=== PATIENT | male | born 1930 | race Caucasian/White ===

== ENCOUNTER 2018-01-08 09:24 | Emergency (ER) | payer MEDICARE ==
[~2018-01-08] VITALS: Ht 180.3 cm; Wt 95.7 kg
[~2018-01-08 09:24] MED LIST: AMLO5; ASPI325EC PO; ATOR10; ATOR20 PO; Aspirin EC81 MG; BENAML10/2 PO; BLOOD PRESSURE; CHOLESTEROL MED; CLOP75 PO; CYAN100; DOCU100 PO; FAMO20; GLUCHON; ISOMON30 PO; Isosorbide Mono30 MG PO; JOINT SUPPORT1 EACH; LISINOPRIL; MELO7.5 PO; METF500 PO; METO25ER PO; MULVITMINE; Multiple Vitam1 EAC1 PO; NAPR220; OMEGA-3 KRILL1 EAC4 PO; OMEP10ER; OMEP10ER PO; OMEP20ER PO; ROSU10TA; ROSU10TA PO; SIMV10; STOOL SOFTENER
[2018-01-08 10:21] LABS: BASOPHILS ABSOLUTE AUTO 0.05 K/mm3 (0.00-0.23); BASOPHILS PERCENT AUTO 0 % (0-2); EOSINOPHILS PERCENT AUTO 0 % (0-6); Hematocrit 38.7 % (37.0-53.0); Hemoglobin 12.5 g/dL (13.5-17.5); IMMATURE GRAN ABSOLUTE AUTO 0.09 K/mm3 (0.00-0.10); IMMATURE GRAN PERCENT AUTO 1 % (0-1); LYMPHOCYTES ABSOLUTE AUTO 0.49 K/mm3 (0.84-5.20); LYMPHOCYTES PERCENT AUTO 3 % (21-46); MONOCYTES ABSOLUTE AUTO 0.77 K/mm3 (0.16-1.47); MONOCYTES PERCENT AUTO 5 % (4-13); Mean Corpuscular HGB 30.1 pg (26.0-34.0); Mean Corpuscular HGB Conc 32.3 g/dL (31.5-36.5); Mean Corpuscular Volume 93 fL (80-100); NEUTROPHILS ABSOLUTE AUTO 15.55 K/mm3 (1.96-9.15); NEUTROPHILS PERCENT AUTO 92 % (41-73); Platelet Count 134 K/mm3 (150-400); RDW Coefficient Variation 13.6 % (11.7-14.2); RDW Standard Deviation 46.6 fL (35.1-46.3); Red Blood Cell Count 4.15 M/mm3 (4.30-5.90); White Blood Cell Count 16.95 K/mm3 (4.00-11.30)
[2018-01-08 10:34] LABS: Creatinine, Blood 1.71 mg/dL (0.60-1.20); Potassium, Blood 4.7 mmol/L (3.5-5.5)
[2018-01-08] MEDS ORDERED: AMLO10 PO (12:16)
[2018-01-08] MEDS ORDERED: ATOR20 PO (12:16)
[2018-01-08] MEDS ORDERED: ISOMON20 PO (12:16)
[2018-01-08] MEDS ORDERED: CLOP75 (12:17)
[2018-01-08] MEDS ORDERED: Metformin HCl500 MG (12:17)
[2018-01-08] MEDS ORDERED: Aspir 8181 MG (12:17)
[2018-01-08] MEDS ORDERED: METO25ER PO (12:17)
== END 2018-01-08 13:00 | disposition short-term general hospital (02) ==
LOC: ER 09:24
PROVIDERS: Emergency Medicine
DX: N32.89 Other specified disorders of bladder (principal); Z87.891 Personal history of nicotine dependence
CPT/HCPCS: 36415; 51702; 51798; 80048; 85025; 96374; 96375; 99285; J1170; J2405

== ENCOUNTER 2018-01-12 16:45 | Emergency (ER) | payer MEDICARE ==
[~2018-01-12] VITALS: Ht 180.3 cm; Wt 101.6 kg
[~2018-01-12 16:45] MED LIST changes: +AMLO10 PO; +Aspir 8181 MG; +CLOP75; +ISOMON20 PO; +Metformin HCl500 MG
[2018-01-12 22:02] LABS: Source, Urine Catheter
[2018-01-12 22:04] LABS: Bilirubin, Urine Neg (Neg); Blood, Urine 5+ (Neg); Glucose Qualitative, Urine Neg (Neg); Ketones, Urine Neg (Neg); Leukocyte Esterase, Urine 2+ (Neg); Nitrite, Urine Neg (Neg); Protein, Urine 3+ (Neg); Specific Gravity, Urine 1.015 (1.003-1.022); Urobilinogen, Urine NORM (Normal)
[2018-01-12 22:10] LABS: Appearance, Urine Hazy (Clear); Color, Urine Yellow (P-Yellow)
[2018-01-12 22:11] LABS: Bacteria Few /hpf; Squamous Epithelial Cells Not Seen /hpf (Few)
== END 2018-01-12 22:37 | disposition home or self-care (01) ==
LOC: ER 16:45
PROVIDERS: Physician Assistant
DX: T83.098A Other mechanical complication of other urinary catheter, initial encounter (principal); R33.9 Retention of urine, unspecified; E11.9 Type 2 diabetes mellitus without complications; Z95.0 Presence of cardiac pacemaker; Z98.890 Other specified postprocedural states; Z88.8 Allergy status to other drugs, medicaments and biological substances; Z90.49 Acquired absence of other specified parts of digestive tract; Z95.5 Presence of coronary angioplasty implant and graft; Z79.899 Other long term (current) drug therapy
CPT/HCPCS: 51700; 51798; 81001; 87077; 87086; 87186; 99283

== ENCOUNTER 2018-11-23 20:52 | Emergency (ER) | payer MEDICARE, OTHER ==
[~2018-11-23] VITALS: Ht 180.3 cm; Wt 86.2 kg
[2018-11-23] MEDS ORDERED: MELO7.5 PO (21:38)
[2018-11-23 23:15] LABS: Source, Urine Catheter
[2018-11-23 23:18] LABS: Blood, Urine 5+ (Neg); Glucose Qualitative, Urine Neg (Neg); Ketones, Urine 1+ (Neg); Leukocyte Esterase, Urine 1+ (Neg); Nitrite, Urine Pos (Neg); Protein, Urine 4+ (Neg); Specific Gravity, Urine 1.015 (1.003-1.022); Urobilinogen, Urine 1+ (Normal)
[2018-11-23 23:19] LABS: Appearance, Urine Turbid (Clear); Bilirubin, Urine 2+ (Neg); Color, Urine Brown (P-Yellow)
[2018-11-23 23:24] LABS: Bacteria Mod /hpf; Red Blood Cells, Urine TNTC /hpf (0-2); Squamous Epithelial Cells Not Seen /hpf (Few)
[2018-11-23] MEDS ORDERED: LEVO750 PO (23:30)
== END 2018-11-23 23:43 | disposition home or self-care (01) ==
LOC: ER 20:52
PROVIDERS: Emergency Medicine
DX: N39.0 Urinary tract infection, site not specified (principal); R33.9 Retention of urine, unspecified; Z88.8 Allergy status to other drugs, medicaments and biological substances; Z87.891 Personal history of nicotine dependence
CPT/HCPCS: 51702; 51798; 81001; 87086; 99283

== ENCOUNTER 2019-07-02 13:59 | Day surgery (SDC) | payer MEDICARE ==
[~2019-07-02] VITALS: Ht 180.3 cm; Wt 94.9 kg
[~2019-07-02 13:59] MED LIST changes: +CRANBERRY CONC1 EACH PO; +Ferrous Sulfat325 M2 PO; +Flomax0.4 MG PO; +LEVO750 PO; +Lipitor20 MG PO; +Lotrel 10-20 M1 EACH PO; +MULTI VITAMIN1 EACH PO; +Pepto-Bismol262 MG PO; +SITA100T2 PO; +Zantac150 MG PO
--- NOTE | 2019-07-02 15:25 | NUR ---
07/02/19 1525 Alia Worley UPON TURNING PT ONTO LEFT SIDE LIQUID BROWN STOOL CAME OUT ON THE PAD. CASE CANCELLED DUE TO INCOMPLETE PREP. NO MEDS WERE GIVEN. PT TO BE D/C TO HOME.
--- NOTE | 2019-07-02 16:47 | NUR ---
07/02/19 7707 Margot Plunkett PT WAS BROUGHT TO STEPDOWN INCONTINENT OF STOOL, I CLEANED PT UP AND ALMOST HAD HIS CLOTHES BACK ON WHEN HE WAS INCONTINENT OF A VERY LARGE AMOUNT OF BROWN LIQUID STOOL. I CLEANED PT ONCE AGAIN AND GOT HIS CLOTHES ON AND HE WAS GIVEN DC INSTUCTIONS FOR HOME, GIVEN RX THAT WAS FAXED TO [facility] I TOOK PT VIA WC AND GOT HIM TO XRAY DEPT. WHERE HIS SON ASSUMED CARE.
== END 2019-07-02 16:30 | disposition home or self-care (01) ==
LOC: ORSCSDS 13:59
DX: R19.7 Diarrhea, unspecified (principal); R10.84 Generalized abdominal pain; Z53.9 Procedure and treatment not carried out, unspecified reason
CPT/HCPCS: 71046; 82947; J2250; J2704; J7120

== ENCOUNTER 2019-07-03 13:55 | Inpatient (IN) | payer MEDICARE, OTHER ==
[~2019-07-03] VITALS: Ht 180.3 cm; Wt 78.4 kg
[2019-07-03 14:20] LABS: Calcium, Ionized (POC) 1.15 mmol/L (1.10-1.46); Chloride (POC) 100 mmol/L (98-108); Creatinine (POC) 2.9 mg/dL (0.8-1.3); Glucose (ISTAT POC) 127 mg/dL (70-99); Hemoglobin (POC) 10.2 g/dL (13.5-17.5); Potassium (POC) 3.4 mmol/L (3.5-5.5); Sodium (POC) 127 mmol/L (135-148); Total CO2 (POC) 16 mmol/L (21-32)
[2019-07-03 14:24] LABS: Hematocrit 29.7 % (37.0-53.0); Hemoglobin 9.3 g/dL (13.5-17.5); Mean Corpuscular HGB 28.4 pg (26.0-34.0); Mean Corpuscular HGB Conc 31.3 g/dL (31.5-36.5); Mean Corpuscular Volume 91 fL (80-100); Mean Platelet Volume 11.5 fL (9.1-12.4); NRBC ABSOLUTE 0.02 K/mm3 (0.00-0.02); NRBC Auto 0.1 /100 WBC (0.0-0.2); Platelet Count 216 K/mm3 (150-400); RDW Coefficient Variation 15.7 % (11.7-14.2); RDW Standard Deviation 51.2 fL (35.1-46.3); Red Blood Cell Count 3.28 M/mm3 (4.30-5.90)
[2019-07-03 14:45] LABS: BAND PERCENT MAN 4 % (0-8); BASOPHILS PERCENT MAN 0 % (0-2); EOSINOPHILS PERCENT MAN 0 % (0-6); LYMPHOCYTES ABSOLUTE MAN 0.46 K/mm3 (0.84-5.20); LYMPHOCYTES PERCENT MAN 2 % (21-46); METAMYELOCYTE ABSOLUTE MAN 0.23 K/mm3 (0.00-0.00); METAMYELOCYTE PERCENT MAN 1 % (0-0); MONOCYTES ABSOLUTE MAN 0.46 K/mm3 (0.16-1.47); MONOCYTES PERCENT MAN 2 % (4-13); NEUTROPHILS ABSOLUTE MAN 22.04 K/mm3 (1.96-9.15); SEG NEUTROPHILS PERCENT MAN 91 % (41-73); TOTAL CELLS COUNTED 100
[2019-07-03 14:46] LABS: Albumin, Blood 2.5 g/dL (3.4-5.0); Albumin/Globulin Ratio 0.6 (0.8-1.8); Bilirubin, Total 0.4 mg/dL (0.1-1.0); Bun/Creatinine Ratio 24.3 (12.0-20.0); Creatinine, Blood 2.43 mg/dL (0.60-1.20); Globulin, Blood 4.4 g/dL (2.2-4.0); Potassium, Blood 3.4 mmol/L (3.5-5.5); Total Protein, Blood 6.9 g/dL (6.4-8.2)
[2019-07-03 19:36] LABS: PCO2 Arterial 34.4 mmHg (35-45); PO2 Arterial 63.4 mmHg (80-100)
[2019-07-03 23:05] LABS: CPK Creatine Kinase 139 U/L (39-308); Phosphorus, Blood 5.2 mg/dL (2.5-4.9); Prostate Specific Antigen 0.014 ng/mL (0.000-4.000); Uric Acid, Blood 9.5 mg/dL (3.5-7.2)
[2019-07-04 04:37] LABS: BASOPHILS ABSOLUTE AUTO 0.05 K/mm3 (0.00-0.23); BASOPHILS PERCENT AUTO 0 % (0-2); EOSINOPHILS ABSOLUTE AUTO 0.01 K/mm3 (0.00-0.68); EOSINOPHILS PERCENT AUTO 0 % (0-6); Hematocrit 29.3 % (37.0-53.0); IMMATURE GRAN ABSOLUTE AUTO 1.91 K/mm3 (0.00-0.10); IMMATURE GRAN PERCENT AUTO 9 % (0-1); LYMPHOCYTES ABSOLUTE AUTO 0.14 K/mm3 (0.84-5.20); LYMPHOCYTES PERCENT AUTO 1 % (21-46); MONOCYTES ABSOLUTE AUTO 0.91 K/mm3 (0.16-1.47); MONOCYTES PERCENT AUTO 4 % (4-13); Mean Corpuscular HGB 28.5 pg (26.0-34.0); Mean Corpuscular HGB Conc 30.7 g/dL (31.5-36.5); Mean Corpuscular Volume 93 fL (80-100); Mean Platelet Volume 11.3 fL (9.1-12.4); NEUTROPHILS ABSOLUTE AUTO 18.94 K/mm3 (1.96-9.15); NEUTROPHILS PERCENT AUTO 86 % (41-73); NRBC ABSOLUTE 0.03 K/mm3 (0.00-0.02); NRBC Auto 0.1 /100 WBC (0.0-0.2); Platelet Count 191 K/mm3 (150-400); RDW Coefficient Variation 15.7 % (11.7-14.2); RDW Standard Deviation 53.3 fL (35.1-46.3); Red Blood Cell Count 3.16 M/mm3 (4.30-5.90); White Blood Cell Count 21.96 K/mm3 (4.00-11.30)
[2019-07-04 04:50] LABS: International Normalized Ratio 1.13; Prothrombin Time Results 11.8 Sec (9.7-11.5)
[2019-07-04 04:52] LABS: Bun/Creatinine Ratio 24.5 (12.0-20.0); Calcium, Blood 7.6 mg/dL (8.5-10.1); Creatinine, Blood 2.61 mg/dL (0.60-1.20); Potassium, Blood 3.4 mmol/L (3.5-5.5)
[2019-07-04 04:56] LABS: PCO2 Arterial 36.1 mmHg (35-45); PO2 Arterial 94.9 mmHg (80-100); pH Blood Arterial 7.16 (7.35-7.45)
[2019-07-04 04:58] LABS: BAND PERCENT MAN 3 % (0-8); BASOPHILS PERCENT MAN 0 % (0-2); EOSINOPHILS PERCENT MAN 0 % (0-6); METAMYELOCYTE ABSOLUTE MAN 0.21 K/mm3 (0.00-0.00); METAMYELOCYTE PERCENT MAN 1 % (0-0); MONOCYTES ABSOLUTE MAN 0.21 K/mm3 (0.16-1.47); MONOCYTES PERCENT MAN 1 % (4-13); NEUTROPHILS ABSOLUTE MAN 21.52 K/mm3 (1.96-9.15); SEG NEUTROPHILS PERCENT MAN 95 % (41-73); TOTAL CELLS COUNTED 100
--- NOTE | 2019-07-04 05:23 | NUR ---
CALLED [facility]ICAL [facility] TO HOSPITALIST. PH [phone] DOWN FROM 7.2 IN ED. HE WILL ADD ORDER FOR SODIUM BICARB PO.
[2019-07-04 06:13] LABS: Source, Urine Catheter
[2019-07-04 06:18] LABS: Bilirubin, Urine Neg (Neg); Blood, Urine 2+ (Neg); Glucose Qualitative, Urine Neg (Neg); Ketones, Urine Neg (Neg); Leukocyte Esterase, Urine Neg (Neg); Nitrite, Urine Neg (Neg); Protein, Urine 2+ (Neg); Specific Gravity, Urine 1.015 (1.003-1.022); Urobilinogen, Urine NORM (Normal)
[2019-07-04 06:24] LABS: Appearance, Urine Clear (Clear); Color, Urine Pale Yellow (P-Yellow)
[2019-07-04 06:27] LABS: Red Blood Cells, Urine 0-2 /hpf (0-2); White Blood Cells, Urine Not Seen /hpf (0-5)
[2019-07-04 06:32] LABS: Bacteria Not Seen /hpf; Granular Casts 0-2 /lpf (0); Squamous Epithelial Cells Rare /hpf (Few)
--- NOTE | 2019-07-04 07:33 | NUR ---
NOC SHIFT SUMMARY PT ADMITTED THIS NIGHT FOR SIRS AND SOB. HE IS AAOX4, ON 3LNC RESP ARE EVEN AND UNLABORED. LUNG SOUNDS WHEEZY THROUGHOUT. VSS. NO ACUTE CHANGES NOTED THIS NIGHT AND PT DOES NOT APPEAR TO BE IN ANY ACUTE DISTRESS. ONCOLOGIST IN TO SEE HIM THIS A.M. REPORT TO ONCOMING RN.
[2019-07-04 10:27] LABS: Stool Occult Blood Guaiac 1 Pos (Neg)
--- NOTE | 2019-07-04 17:45 | NUR ---
SHIFT SUMMARY DR. 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 PT CHOSE NOT TO PERSUE FURTHER TREATMENT AT THIS TIME AND TO CHANGE TO DNR STATUS. HAS HAD DIARRHEA THROUGH DAY. DID GET UP TO COMMODE WITH 2 PERSON ASSIST AND VOIDED ONCE. WEAK AND REPORTS A "BAD" KNEE. FWW USED FOR SAFETY. HAS BEEN SLEEPING MOST OF DAY. STATES HE WOULD RATHER SLEEP THAN ANYTHING ELSE AT THIS TIME. HE HAS BEEN INCONTINENT OF STOOL THROUGH DAY AND REPORTS HE DOESN'T REALLY NOTICE HE IS LEAKING STOOL. DENIES RESP DISTRESS. PT HAS SPOKEN WITH FAMILY ON PHONE AND DR. CARR TOOK DAUGHTERS NUMBER AND RECEIVED PERMISSION TO SPEAK WITH HER ON PHONE ABOUT DX AND PROGNOSIS.
--- NOTE | 2019-07-05 04:57 | NUR ---
shift summary: Pt slept well last pm for the most part. Dilaudid was given x 1 with adequate relief. Abdomen very distended and firm. O2 on at 4 liters to keep sats above 90%.
--- NOTE | 2019-07-05 07:22 | NUR ---
STATUS CHANGE: LEYDA CABAN, WHO WAS WITH THE PATIENT YESTERDAY, REPORTED TO THE RN THAT THE PATIENT'S ORIENTATION AND ALERTNESS WAS SIGNIFICANTLY CHANGED FROM YESTERDAY. PATIENT IS RESTING IN BED WITH A BLANK STARE. HE WILL LOOK AT YOU WHEN SPEAKING LOUDLY AND ANSWER WITH 1-2 WORDS. SOMETIMES, HE SIMPLY SAYS "YUP" WHETHER THIS IS AN APPROPRIATE RESPONSE OR NOT. VITAL SIGNS ARE COMPARABLE TO THE LAST [address] SHANEL SHEPHERD. NO NEW ORDERS AT THIS TIME.
--- NOTE | 2019-07-05 09:28 | NUR ---
PATIENT DID NOT EAT BREAKFAST THIS SHIFT. PATIENT WAS NOT AWAKE ENOUGH TO EAT THIS SHIFT. RN NOTIFIED.
--- NOTE | 2019-07-05 14:18 | NUR ---
PATIENT DID NOT EAT LUNCH THIS SHIFT DUE TO BEING NOT AWAKE ENOUGH TO EAT. RN NOTIFIED.
--- NOTE | 2019-07-05 14:19 | NUR ---
[facility] inital visit: Mr. Sunshine appears frail and weak. He is [place] and he is hard to understand at times. He tells me he feels "ready" and asked me how long he has. He would like to go home to . He is active in his Islam dyan, and I have asked Father Julio César to perform Sacrament of the Sick later today. Mr. Sunshine states that the only unfinished business he'd feels he must complete is making his dtr, Cele, his [id number]. T/C to Cele. She was tearful and overwhelmed. I explained to Cele her father's wishes. Cele tells me she has her own health problems and cannot care for her father in his home of hers. I told her about his wishes regarding [id number]. She arrived a few hours later with a durable power-of -family law attorney document. Our notary, Gloria Bates will meet with pt and family this afternoon. No ther needs presented. I will remain available.
--- NOTE | 2019-07-05 14:41 | NUR ---
PATIENT STATUS: PATIENT RESTING IN BED. FAMILY HAS LEFT THE BEDSIDE. PATIENT REPORTS PAIN AT A "5". PATIENT WAS EXPERIENCING SECRETIONS EARLIER. UTILIZED MINIMAL SUCTION AND REPOSITIONED PATIENT. PLACED SCOP PATCH. SECRETIONS ARE IMPROVED. PATIENT REQUESTS BEING ABLE TO REST. MEDICATED FOR PAIN. TURNED OFF LIGHTS AND COMMUNICATED WITH DOOR MANAGER TO ALLOW PATIENT TO REST.
--- NOTE | 2019-07-05 17:35 | NUR ---
Pt visit this afternoon. Pt is resting in bed and appears mildly dyspneic as evidenced by work of breathing. No family present at this time. Pt briefly responds verbally with a hello then no longer responds. Reviewed chart notes and medications. Will disucss case with bedside nurse when she is available. Palliative Care will remain available for symptom management.
--- NOTE | 2019-07-05 17:44 | NUR ---
Late Entry from prvious visit. Spoke with bedside nurse Marcia and discussed case. Marcia reports Pt has shown significant decline. Discussed work of breathing and reviewed medications. Palliative Care will remain available.
--- NOTE | 2019-07-05 17:47 | NUR ---
AIR HUNGER: PATIENT RESTING IN BED. SHOWING SIGNS OF AIR HUNGER. MEDICATED PER EMAR.
--- NOTE | 2019-07-05 17:53 | NUR ---
PATIENTS ATTENDS WERE CHECKED AND THEY WERE CLEAN AND DRY. PATIENT WAS ALSO REPOSITIONED. RN WAS PRESENT.
--- NOTE | 2019-07-05 17:55 | NUR ---
PATIENT DID NOT EAT DINNER THIS SHIFT DUE TO NOT BEING AWAKE ENOUGH AT THIS TIME. RN NOTIDIED.
--- NOTE | 2019-07-05 18:14 | NUR ---
AIR HUNGER: AIR HUNGER MUCH IMPROVED. BREATHING AND RESTING COMFORTABLY. WHEN ASKED, PATIENT RESPONDED HE IS DOING "PRETTY GOOD". DENIES NEEDS AT THIS TIME.
--- NOTE | 2019-07-05 19:15 | NUR ---
END OF SHIFT SUMMARY: PATIENT TRANSITIONED TO COMFORT CARE TODAY. HIS DAUGHTER IS AWARE AND CAME TO VISIT THE PATIENT TODAY. ATTEMPTED TO TRANSFER FINANCIAL POA TO THE DAUGHTER. UNSURE OF FINAL RESULT. PATIENT REPORTED PAIN MID-DAY. MEDICATED PER PRNS (SEE EMAR). MEDICATED ONCE FOR AIR HUNGER. PATIENT WOULD LIKE TO BE ALLOWED TO REST. PATIENT'S EYES REMAIN OPEN EVEN WHEN HE APPEARS TO BE SLEEPING. RESPONDS TO SIMPLE QUESTIONS. SOMETIMES, PATIENT RESPONDS WITH "RIGHT" WHETHER THAT WAS AN APPROPRIATE RESPONSE OR NOT. PATIENT APPEARS COMFORTABLE. RASH IN THE GROIN APPEARS TO BE IMPROVED AFTER APPLICATION OF DESITIN.
--- NOTE | 2019-07-06 04:03 | NUR ---
Shift summary: Pt condition has deterioated last pm. Pt on comfort care. Pt pretty much unresponsive with very shallow breathing. No s/s pain noted or need for roxinol. Pt incontinent of bowel x 1 during night.
--- NOTE | 2019-07-06 07:42 | NUR ---
MORNING ASSESSMENT: PATIENT RESTING IN BED. DOES NOT RESPOND TO VERBAL STIMULI. NO SIGNS OR SYMPTOMS OF PAIN AT THIS TIME. BRIEF IS DRY. NO FAMILY PRESENT AT THIS TIME.
--- NOTE | 2019-07-06 08:06 | NUR ---
Palliative Care (Spiritual): Pt was alone, non-responsive. He looked peaceful and comfortable. Family was not present at time of visit. I introduced my person and offered ministry of presence. Verbal prayer was provided on pt's behalf for comfort and peace. I will remain available.
--- NOTE | 2019-07-06 11:44 | NUR ---
NAUSEA AND EMESIS: LATE ENTRY PATIENT RESTING COMFORTABLY IN BED. WITH CLAIMS SERVICE REPRESENTATIVE, STARTED A BRIEF CHANGE FOR A SOILED BRIEF. PATIENT ON SIDE WHEN DARK GREEN BILE STARTED COMING OUT OF HIS NOSE. PATIENT MAKING WRETCHING MOTIONS, BUT NO EMESIS CAME OUT OF HIS MOUTH DUE TO HIS TIGHTLY CLENCHED TEETH. SAT PATIENT UP. UTLIZED SUCTION AND WARM WASH CLOTHS TO CLEAN UP PATIENT. MEDICATED FOR PAIN. PATIENT HAD ANOTHER EPISODE OF EMESIS. DISCUSSED WITH PALLIATIVE CARE RNSANJAY. MEDICATED PATIENT FOR PAIN AND ANXIETY. SEE EMAR. WILL ALLOW PATIENT TO REST WITH MEDICATIONS BEFORE ATTEMPTING TO CLEAN UP BED AND FINISH BRIEF CHANGE. DETAIL MAKER AND FITTER AWARE THAT ADDITIONAL HELP WILL BE NEEDED.
--- NOTE | 2019-07-06 13:15 | NUR ---
Pt visit this afternoon. Pt is resting in bed with his eyes closed and is non responsive. Mild dyspnea noted as evidenced by work of breathing. Mottling noted on lower extremitites. Pt appears to be in the actively dying staged. Spoke with bedside nurse Marcia and discussed case. Family plans to visit aroung 1430 today and is requesting a visit from palliative care. Palliative Care will remain available.
--- NOTE | 2019-07-06 14:39 | NUR ---
LET NURSING LUBE MAN AND CHARGE NURSE KNOW OF PATIENTS PASSING. 2 NURSE VERIFICATION WAS DONE. PLACED A CALL TO DR. AGUERO PATIENT IS [place], WAS UNABLE TO REACH HER. LEFT A GENERIC VOICEMAIL FOR HER TO CALL THE MEDICAL FLOOR TO LET THE DOCTOR KNOW.
--- NOTE | 2019-07-06 16:23 | NUR ---
I WAS WITH THE PATIENT WHEN HE PASSED. WE WERE MOVING HIM TO GET THE BILE OFF HIS SHEETS. PATIENT'S BREATHING WAS EVEN AND UNLABORED AT THAT POINT BUT WAS SLOWING DOWN. WHEN WE ROLLED THE PATIENT BILE BEGAN TO OOZE FROM HIS MOUTH AND HIS NOSE. AT THAT POINT EVEN WITH SUCTIONING I HAD NOT SEEN A BREATH IN ALMOST A MINUTE. I STOPPED AND TRIED TO FEEL A PULSE, LISTENED FOR A HEARTBEAT AND LISTENED FOR BREATH. AFTER TWO MINUTES I CALLED LÓPEZ Frausto RN, FOR VERIFICATION OF PATIENT'S PASSING. CALLED THE DOCTOR AT THAT TIME AND LET THE FAMILY KNOW OF THE PATIENTS PASSING, WELL NOTIFYING THE CHARGE AND THE NURSING TURPENTINER. ALL BELONGINGS WERE SENT HOME WITH THE PATIENT'S FAMILY MEMBERS, AND THE PATIENT WAS CLEANED UP. FAMILY DECLINED TO SEE HIM POST HIS PASSING, THEY WERE CONSOLED BY PALLIATIVE CARE.
--- NOTE | 2019-07-06 16:58 | NUR ---
DISCHARGE:PATIENT LEFT THE FACILITY WITH THE HOME BAILIFF. CELL LINER, BONNIE GONZALEZ AWARE. FACE SHEET PROVIDED. BAILIFF STATED THAT HE WOULD NOTIFY THE FAMILY.
== END 2019-07-06 14:25 | DRG 871 ==
LOC: ER 13:55 → MEDS 19:05
PROVIDERS: Emergency Medicine; Nurse Practitioner Acute Care; ADMIT Hospitalist
DX: A41.9 Sepsis, unspecified organism (principal); J96.01 Acute respiratory failure with hypoxia; C20 Malignant neoplasm of rectum; C78.7 Secondary malignant neoplasm of liver and intrahepatic bile duct; C77.2 Secondary and unspecified malignant neoplasm of intra-abdominal lymph nodes; C78.6 Secondary malignant neoplasm of retroperitoneum and peritoneum; N17.9 Acute kidney failure, unspecified; R18.0 Malignant ascites; E87.2 Acidosis; Z51.5 Encounter for palliative care; C61 Malignant neoplasm of prostate; C67.6 Malignant neoplasm of ureteric orifice; C67.9 Malignant neoplasm of bladder, unspecified; I12.9 Hypertensive chronic kidney disease with stage 1 through stage 4 chronic kidney disease, or unspecified chronic kidney disease; E11.22 Type 2 diabetes mellitus with diabetic chronic kidney disease; N18.3 Chronic kidney disease, stage 3 (moderate); G47.33 Obstructive sleep apnea (adult) (pediatric); Z86.73 Personal history of transient ischemic attack (TIA), and cerebral infarction without residual deficits; I71.4 Abdominal aortic aneurysm, without rupture; Z85.038 Personal history of other malignant neoplasm of large intestine; I25.10 Atherosclerotic heart disease of native coronary artery without angina pectoris; Z95.5 Presence of coronary angioplasty implant and graft; Z95.0 Presence of cardiac pacemaker; Z87.891 Personal history of nicotine dependence; Z66 Do not resuscitate; R19.7 Diarrhea, unspecified; D64.9 Anemia, unspecified
CPT/HCPCS: 36415; 36600; 71046; 74176; 80047; 80048; 80053; 81001; 82272; 82550; 82803; 82947; 83605; 83735; 83880; 84100; 84145; 84550; 85014; 85025; 85610; 87040; 93005; 93010; 94640; 94762; 99285-25; C9113; G0103; J1170; J1940; J2543; J3480; J7040